=== PATIENT | female | born 2000 | race Caucasian/White ===

== ENCOUNTER 2021-05-11 21:28 | Emergency (ER) | payer MEDICAID ==
[~2021-05-11] VITALS: Ht 160 cm; Wt 77.1 kg
[2021-05-11 22:15] VITALS: BP 113/67
--- NOTE | 2021-05-11 22:15 | NUR ---
SEEN AND EXAMINED BY ANISH
--- NOTE | 2021-05-11 22:18 | NUR ---
TO LOBBY AMBULATORY
[2021-05-11 23:03] LABS: APPEARANCE,URINE CLEAR (CLEAR); BILIRUBIN,URINE 1+ (NEGATIVE); BLOOD, URINE NEGATIVE (NEGATIVE); COLOR,URINE YELLOW (YELLOW); LEUKOCYTE ESTERASE ,URINE NEGATIVE (NEGATIVE); NITRITE, URINE NEGATIVE (NEGATIVE); UGLUCOSE NEGATIVE (NEGATIVE)
[2021-05-11 23:06] LABS: BASOPHILS % (AUTO) 0.1 % (0.0-2.0); EOSINOPHILS % (AUTO) 0.1 % (0.0-4.0); HEMATOCRIT 36.3 % (36-48); HEMOGLOBIN 12.6 g/dL (12.0-16.0); LYMPHOCYTES # (AUTO) 0.8 K/uL (2.5-16.5); LYMPHOCYTES % (AUTO) 8.5 % (20.5-51.1); MEAN CORPUSCULAR HEMOGLOBIN 31 pg (27-31); MEAN CORPUSCULAR HGB CONC 35 g/dL (33-37); MEAN CORPUSCULAR VOLUME 89.3 fL (80-94); MONOCYTES # (AUTO) 0.6 K/uL (0.8-1.0); MONOCYTES % (AUTO) 6.3 % (1.7-9.3); NEUTROPHILS # (AUTO) 8.2 K/uL (1.8-7.7); PLATELET COUNT (AUTO) 173 K/uL (140-450); RED BLOOD CELL COUNT(AUTO) 4.06 MIL/uL (4.20-5.40); RED CELL DISTRIBUTION WIDTH 13.9 % (11.6-13.7); WHITE BLOOD COUNT (AUTO) 9.6 K/uL (4.5-11.0)
--- NOTE | 2021-05-11 23:19 | NUR ---
20 YO/F BIB SELF W CO OF SHARP HEAD ACHE 09/20, NON-RAD BEGINING EARLIER TODAY, + DIZZYNESS. PT DENIES ANY BLURRY VISION, LOC. PT ALSO REPORTS SOME MID-EPIGASTRIC PAIN BEGINGIN TODAY, + MILD ABDOMINAL CRAMPING. PT REPORTS OF 4 MONTHS, DENIES VAG BLEEDING. PT ALSO REPORTS N/V BUT RELATES IT TO HER . DENIES FEVERS, COUGH, CONGESTION, URINE OR BOWEL PORBLEMS. GCS 15, BOWEL SOUNDS PRESENT, ABDOMEN SOFT AND TENDER AT MID-EPIGATRIC AREA. VSS. PT LAYING IN BED LOCKED IN LOWEST POSITION. BREATHING EVEN AND UNLABORED. NAD NOTED, WILL CONTINUE TO MONITOR. PT TOOK TYLENOL AT HOME AT 2030. PMH:DENIES NKA
[2021-05-11] MEDS ORDERED: LACTATED RINGERS 1,000 ML IV ONE (23:35)
[2021-05-11 23:54] LABS: ANION GAP 14.8 (8-16); CARBON DIOXIDE 25.4 mmol/L (21-32); POTASSIUM 3.2 mmol/L (3.5-5.1)
[2021-05-12] LABS: CREATININE 0.5 mg/dL (0.6-1.3); TOTAL BILIRUBIN 0.6 mg/dL (0.0-1.0)
[2021-05-12 00:01] LABS: ALBUMIN 2.8 g/dL (3.4-5.0)
[2021-05-12] MEDS ORDERED: POTASSIUM CHLORIDE 10 MEQ TABER PO ONE (00:25)
[2021-05-12] MEDS ORDERED: DOXY1TCP PO (00:26)
[2021-05-12] MEDS ORDERED: LACTATED RINGERS 1,000 ML IV STA (00:38)
[2021-05-12 01:13] VITALS: BP 101/61
--- NOTE | 2021-05-12 01:13 | NUR ---
Patient discharged with v/s stable. Written and verbal after care instructions given and explained. Patient alert, oriented and verbalized understanding of instructions. Ambulatory with steady gait. All questions addressed prior to discharge. ID band removed. Patient advised to follow up with PMD. Rx of CHAPINCITO BUTLER given. Patient educated on indication of medication including possible reaction and side effects. Opportunity to ask questions provided and answered.
== END 2021-05-12 01:13 | disposition home or self-care (01) ==
LOC: MED 21:28
DX: O26.892 Other specified pregnancy related conditions, second trimester (principal); E87.6 Hypokalemia; O21.9 Vomiting of pregnancy, unspecified
CPT/HCPCS: 36415; 76817; 80053; 81003; 84702; 85025; 86900; 86901; 96360; 99284; Q0092

== ENCOUNTER 2023-09-02 17:33 | Emergency (ER) | payer MEDICAID ==
[~2023-09-02] VITALS: Ht 162.6 cm; Wt 83.9 kg
[~2023-09-02 17:33] MED LIST: DOXY1TCP PO
[2023-09-02 18:14] VITALS: BP 101/55; PULSE 85; RESP 18; TEMP 98.7; O2SAT 98
== END 2023-09-02 19:40 | disposition home or self-care (01) ==
LOC: MED 17:33
DX: Z11.3 Encounter for screening for infections with a predominantly sexual mode of transmission (principal); Z79.899 Other long term (current) drug therapy
CPT/HCPCS: 81002; 81025; 87491; 99283